=== PATIENT | female | born 1975 | race Caucasian/White ===

== ENCOUNTER 2016-12-13 18:34 | Emergency (ER) | payer OTHER ==
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
== END 2016-12-13 21:05 | disposition home or self-care (01) ==
LOC: ER 18:34
DX: M79.1 Myalgia (principal); V89.2XXA Person injured in unspecified motor-vehicle accident, traffic, initial encounter